=== PATIENT | female | born 1965 | race Caucasian/White ===

== ENCOUNTER 2017-09-20 10:14 | Emergency (ER) | payer BC ==
[2017-09-20] MEDS ORDERED: TETRACAINE HCL 0.5% OPH SOLN 2 ML OS ONE (11:20)
--- NOTE | 2017-09-20 12:36 | RADIOLOGY REPORT (SQ) ---
EXAM DESCRIPTION: CT HEAD WITHOUT COMPLETED DATE/TIME: 09/20/2017 12:15 pm REASON FOR STUDY: dizziness, left sided blurred vision COMPARISON: None. TECHNIQUE: Axial images acquired through the brain without intravenous contrast. Images reviewed wi th bone, brain and subdural windows. Additional sagittal and coronal reconstructions were generated. Images stored on PACS. All CT scanners at this facility use dose modulation, iterative reconstruction, and/or weight based d osing when appropriate to reduce radiation dose to as low as reasonably achievable (ALARA). [facility]: Dose Right [facility]: CareDose [facility]: Dose Right [facility]: Teradose 4D [facility]: CultureIQ RADIATION DOSE: CT Rad equipment meets quality standard of care and radiation dose reduction techniq ues were employed. CTDIvol: 53.2 mGy. DLP: 937 mGy-cm. mGy. LIMITATIONS: None. FINDINGS: VENTRICLES: Normal size and contour. CEREBRUM: No masses. No hemorrhage. No midline shift. No evidence for acute infarction. Normal gra y/white matter differentiation. No areas of low density in the white matter. CEREBELLUM: No masses. No hemorrhage. No alteration of density. No evidence for acute infarction. EXTRAAXIAL SPACES: No fluid collections. No masses. ORBITS AND GLOBE: No intra- or extraconal masses. Normal contour of globe without masses. CALVARIUM: No fracture. PARANASAL SINUSES: No fluid or mucosal thickening. SOFT TISSUES: No mass or hematoma. OTHER: No other significant finding. IMPRESSION: NORMAL BRAIN CT WITHOUT CONTRAST. EVIDENCE OF ACUTE STROKE: NO. COMMENT: Quality ID # [id number]: Final reports with documentation of one or more dose reduction techniques (e.g., Automated exposure control, adjustment of the mA and/or kV according to patient size, use of iterative reconstruction technique) TECHNICAL DOCUMENTATION: JOB ID: [id number] [employer]- All Rights Reserved Reading location - IP/workstation name: [email or web address]
--- NOTE | 2017-09-20 12:47 | ER Document Report ---
ED Eye Complaint - General Chief Complaint: Eye Problem Stated Complaint: BLURRY VISION LEFT EYE Time Seen by Provider: 09/20/17 11:12 Mode of Arrival: Ambulatory Information source: Patient Notes: Patient is a 52-year-old female who presents to the ER today for left eye blurred vision that "is like a film over my eye." Patient states that it started this morning after she is a new makeup remover to remove mascara from that I. She states that it is oil-based makeup remover that she has never used before. She admits feeling like it was in her eye and that she could not get all the oil out, flushing it out, rubbing at it constantly to try to get all the oil out of her eye after trying to use the makeup remover that was oil- based. She admits to this happening in both of her eyes years ago whenever she used a new contact lens solution that she never used before. She denies any injury to the eye. She denies headache or blurred vision in the other eye, nausea or vomiting. She does admit to some lightheadedness/dizziness over the past 2 days. TRAVEL OUTSIDE OF THE [place] IN LAST 30 DAYS: No - Related Data Allergies/Adverse Reactions: meperidine [From Demerol] Adverse Reaction (Verified 09/20/17 10:28) Past Medical History - General Information source: Patient - Social History Smoking Status: Current Some Day Smoker Chew tobacco use (# tins/day): No Frequency of alcohol use: Occasional Drug Abuse: None Family History: Reviewed & Not Pertinent Patient has suicidal ideation: No Patient has homicidal ideation: No Renal/ Medical History: Denies: Hx Peritoneal Dialysis Review of Systems - Review of Systems Constitutional: No symptoms reported EENT: See HPI Cardiovascular: No symptoms reported Respiratory: No symptoms reported Gastrointestinal: No symptoms reported Genitourinary: No symptoms reported Female Genitourinary: No symptoms reported Musculoskeletal: No symptoms reported Skin: No symptoms reported Hematologic/Lymphatic: No symptoms reported Neurological/Psychological: No symptoms reported Physical Exam - Vital signs Vitals: Temp Pulse Resp BP Pulse Ox 97.7 F 69 18 130/64 H 100 09/20/17 10:35 09/20/17 10:35 09/20/17 10:35 09/20/17 10:35 04/06/18 10:35 - Notes Notes: PHYSICAL EXAMINATION: GENERAL: Well-appearing and in no acute distress. HEAD: Atraumatic, normocephalic. EYES: Pupils equal round and reactive to light, extraocular movements intact, sclera anicteric, conjunctiva are normal. ENT: ear canals without erythema or foreign body, TMs pearly james with good bony landmarks, nares patent, oropharynx clear without exudates. Moist mucous membranes. NECK: Normal range of motion, supple without lymphadenopathy LUNGS: CTAB and equal. No wheezes rales or rhonchi. HEART: Regular rate and rhythm without murmurs EXTREMITIES: Normal range of motion, no pitting edema. No cyanosis. NEUROLOGICAL: Cranial nerves grossly intact. Normal sensory/motor exams. Good and equal strength bilaterally, Kernig and Brudzinski's signs negative, Romberg' s test normal, normal heel to whitehead testing PSYCH: Normal mood, normal affect. SKIN: Warm, Dry, normal turgor, no rashes or lesions noted Course - Re-evaluation Re-evalutation: 09/20/17 13:13 Fluorescein stain of the eye reveals no increased uptake, no foreign body, abrasion or ulcer, patient tolerated well, pressures with Justin-Pen were 16, 19 and 16 consecutively in the left eye. CT of the head negative for any acute pathology. It was performed due to history of dizziness and left eye blurred vision. I do suspect that her "film" over her left eye that she sees is due to her new makeup remover that she use that is oil-based today. I did give her saw man information to follow-up with, she states she will call in the next business day to make an appointment and I also advised that she wear her glasses and no contacts until symptoms have completely resolved or she follows up with eye doctor. - Vital Signs Vital signs: Temp Pulse Resp BP Pulse Ox 97.7 F 69 18 130/64 H 100 09/20/17 10:35 09/20/17 10:35 09/20/17 10:35 09/20/17 10:35 09/20/17 10:35 Procedures - Eye Procedure Left Time completed: 13:00 Eye Irrigated w/ Saline (ccs): 30 Foreign body removal: Left Alcaine Drops Administered: Yes Fluorescein applied: Left Notes: 09/20/17 13:15 No evidence on fluorescein stain of ulcer, abrasion or foreign body, patient tolerated well Discharge - Discharge Clinical Impression: Blurred vision, left eye Condition: Stable Disposition: HOME, SELF-CARE Additional Instructions: Please wear glasses instead of contacts until following up with the eye doctor until symptoms are completely resolved. Return immediately for any new or worsening symptoms. Follow up with eye doctor, call tomorrow to make followup appointment. Referrals: HERMILO BENNETT, [ACTIVE STAFF] - Follow up as needed
[2017-09-20 13:23] VITALS: BP 112/79
== END 2017-09-20 13:23 | disposition home or self-care (01) ==
LOC: ER 10:14
DX: H53.8 Other visual disturbances (principal); F17.200 Nicotine dependence, unspecified, uncomplicated
CPT/HCPCS: 70450; 99284

== ENCOUNTER → 2019-02-03 | Outpatient (CLI) | payer BC | LOC: WI 10:07 | PROVIDERS: ATTEND Internal Medicine | DX: Z12.31 Encounter for screening mammogram for malignant neoplasm of breast (principal) | CPT/HCPCS: 77063; 77067 ==

== ENCOUNTER → 2019-03-12 | Outpatient (CLI) | payer BC ==
--- NOTE | 2019-03-13 16:00 | WOMENS IMAGING REPORT ---
EXAM DESCRIPTION: LEFT DIAGNOSTIC MAMMO W/CAD; U/S BREAST UNILAT LIMITED COMPLETED DATE/TIME: 03/12/2019 10:44 am; 03/12/2019 11:14 am REASON FOR STUDY: R92.2 INCONCLUSIVE MAMMOGRAM; LEFT BREAST DENSITY R92.2 INCONCLUSIVE MAMMOGRAM COMPARISON: Mammograms 02/03/2019, 12/04/2016 EXAM PARAMETERS: Cone compression craniocaudal and mediolateral oblique images of the left breast re corded with digital acquisition. Left whole breast 90 mediolateral view. Left breast ultrasound was also performed. Read with the assistance of CAD. [facility] Program Administrator Version 9.2 LIMITATIONS: None. FINDINGS: BREAST LATERALITY: Left breast MASSES: No suspicious masses. CALCIFICATIONS: No new or suspicious calcifications. ARCHITECTURAL DISTORTION: None. DEVELOPING DENSITY: None. ASYMMETRY: None noted. OTHER: No other significant findings. Left breast ultrasound was performed. At the 6 o'clock position, about 5 to 6 cm from the nipple a w ell-circumscribed anechoic cyst is present with good acoustic through transmission 12 x 8 x 4 mm in s ize. This correlates with the mammographic findings on 02/03/2019. IMPRESSION: No mammographic or sonographic evidence for malignancy left breast BREAST DENSITY: c. The breasts are heterogeneously dense, which may obscure small masses. BIRAD: ASSESSMENT: 2 Benign findings. RECOMMENDATION: RECOMMENDED FOLLOW UP: Please continue bilateral screening tomosynthesis in January 16. SPECIFIC INTERVENTION/IMAGING/CONSULTATION RECOMMENDED:No additional intervention/ imaging/consultati on needed at this time. COMMUNICATION:Patient notified by letter COMMENT: The patient has been notified of the results by letter per MQSA requirements. Additional no tification policies are in place for contacting patient with suspicious or incomplete findings. Quality ID #[id number]: The [employer] recommends an annual screening mammogram for women aged 40 years or over. This facility utilizes a reminder system to ensure that all patients receive reminder letters, and/or direct phone calls for appointments. This includes reminders for routine scr eening mammograms, diagnostic mammograms, or other Breast Imaging Interventions when appropriate. Th is patient will be placed in the appropriate reminder system. TECHNICAL DOCUMENTATION: FINDING NUMBER: (1) ASSESSMENT: (1) JOB ID: [id number] [employer]- All Rights Reserved Reading location - IP/workstation name: [email or web address]
== END ==
LOC: WI 09:58
PROVIDERS: ATTEND Internal Medicine
DX: R92.2 Inconclusive mammogram (principal)
CPT/HCPCS: 76642